=== PATIENT | male | born 1955 | race Caucasian/White ===

== ENCOUNTER 2019-07-04 06:43 | Emergency (ER) | payer MEDICARE, MEDICAID ==
[2019-07-04] MEDS ORDERED: Acetaminophen 500 MG TAB ONE (07:06)
[2019-07-04] MEDS ORDERED: Fentanyl 100 MCG/2 ML VIAL ONE (07:06)
[2019-07-04 07:29] LABS: ALT (SGPT) 30 U/L (8-55); AST (SGOT) 103 U/L (5-34); Albumin 3.7 g/dL (3.4-4.8); Alkaline Phosphatase 140 U/L (40-150); Anion Gap 17 mmol/L (10-20); BUN (Urea Nitrogen) 14 mg/dL (8.4-25.7); Bilirubin, Total 1.2 mg/dL (0.2-1.2); Calc. Creatinine Clearance 0 mL/min (70-130); Calcium 9.1 mg/dL (7.8-10.44); Carbon Dioxide 23 mmol/L (23-31); Chloride 106 mmol/L (98-107); Estimated GFR-MDRD 65; Globulin 3.4 g/dL (2.4-3.5); Glucose 107 mg/dL (80-115); Lipase 215 U/L (8-78); Potassium 4.5 mmol/L (3.5-5.1); Protein, Total 7.1 g/dL (5.8-8.1); Sodium 141 mmol/L (136-145)
[2019-07-04 07:40] LABS: Hemoglobin 11.3 g/dL (14.0-18.0); Mean Corpuscular Hemoglobin 24.8 pg (27.0-31.0); Mean Corpuscular Volume 80.1 fL (78.0-98.0); Mean Platelet Volume 6.9 fL (7.4-10.4); Platelet Count 123 thou/uL (130-400); RBC Distribution Width 18.7 % (11.5-14.5); Red Blood Cell (RBC) Count 4.56 mill/uL (4.70-6.10); White Blood Cell (WBC) Count 12.4 thou/uL (4.8-10.8)
[2019-07-04 07:45] LABS: Anisocytosis SLIGHT = 6-15 cells (100X) (0-5/hpf); Band 3 % (5-11); Lymphocytes 10 % (21-51); MDiff Complete? YES; Monocytes 9 % (0-10); Neutrophil 78 % (42-75); Platelet Morphology Comment Appears Adequate
[2019-07-04 07:48] LABS: CKMB 1.2 ng/mL (0-6.6)
[2019-07-04] MEDS ORDERED: Aspirin Chewable 81 MG TAB ONE (07:57)
[2019-07-04 08:18] LABS: INR-International Normal Ratio 1.3; PTT 32.7 SEC (22.9-36.1); Prothrombin Time 16.4 SEC (12.0-14.7)
--- NOTE | 2019-07-04 08:25 | CT ---
CT abdomen and pelvis with IV contrast HISTORY: Left lower quadrant pain. Liver cancer. COMPARISON: None available. FINDINGS: Mild atelectasis at the lung bases. Large amount of fluid throughout the partially visualiz ed lower esophagus. Prominent calcification within the coronary arteries and other arterial structures. Dystrophic calcification along the posterior liver dome with an adjacent fluid collection measuring u p to 8.4 cm x 3.6 cm greatest diameters on the axial images. Favored to be postoperative changes. A large heterogeneous mass within the lateral segment left liver lobe measures up to 11.3 cm x 10.3 c m greatest diameters on the axial images. Dilatation of the pancreatic duct up to 0.7 cm. At the level of the pancreatic body/neck, an oval cys tic lesion measures up to 2.5 cm. Hemostasis clips near the pancreatic head. Mild dystrophic calcification along the posterior margin of the pancreas. Gallbladder surgically absent. Heterogeneous fat density masses associated with each adrenal gland, larger on the left up to 3.8 cm length. Appearance of myelolipomas. Prominent degenerative changes lumbar spine. Fatty infiltration of the left psoas muscle. Cause is no t evident. No evidence of bowel obstruction. Scattered diverticula arise from the colon without adjacent inflamm ation. Large amount of abdominal fat and colon extend into a left inguinal hernia. The inferior portion of the left scrotum and hernia not included on the images. Dystrophic calcification at the la teral soft tissues of each hip. IMPRESSION: Left lower quadrant pain may be related to a very large left inguinal hernia containing n onobstructed colon. Diverticulosis. No evidence of diverticulitis. Very large heterogeneous mass within the left liver lobe. Correlates with historical report of liver cancer. There are also postoperative changes of the right liver lobe with adjacent fluid collection. No evidence of complication. Cystic mass at the pancreatic neck/body with dilatation of the more distal pancreatic duct. This coul d represent a neoplastic process. Prior exams not available for evaluation of stability. Also findings of chronic pancreatitis. Large amount of gastroesophageal reflux. Fatty masses of each adrenal gland. Likely myelolipomas. Prominent atherosclerosis.
[2019-07-04 08:34] LABS: Bilirubin Negative (Negative); Blood, Urine Trace (Negative); Clarity Clear (Clear); Glucose, Urine (Dipstick) Negative (Negative); Leukocyte Negative (Negative); Nitrite Negative (Negative); Protein, Urine (Dipstick) Negative (Neg-Trace)
[2019-07-04 08:36] LABS: Bacteria/HPF Rare-Few HPF (None Seen); RBC/HPF 0-3 HPF (0-3); Squamous Epithelial 0-3 HPF (0-3); WBC/HPF 0-3 HPF (0-3)
--- NOTE | 2019-07-04 08:55 | RAD ---
Chest one view HISTORY: Fever. COMPARISON: 11/14/2016. FINDINGS: Cardiac silhouette and mediastinum are magnified by projection. Pulmonary vasculature is un remarkable. Mediastinum is midline. No lobar consolidation or evidence of pneumothorax. Old right posterolateral rib fractures. IMPRESSION: Chronic-type findings are stable. No active cardiopulmonary abnormalities are demonstrate d.
[2019-07-04] MEDS ORDERED: Sodium Chloride 0.9% 1,000 ML ONE (09:00)
[2019-07-04] MEDS ORDERED: Piperacillin/Tazobactam 4.5 GM VIAL ONE (09:00)
[2019-07-04] MEDS ORDERED: Sodium Chloride 0.9% 100 ML ONE (09:01)
[2019-07-04] MEDS ORDERED: Iopamidol 370 76% 100 ML VIAL ONE (09:06)
[2019-07-04] MEDS ORDERED: Sodium Chloride 0.9% 250 ML 250 ML ONE (09:31)
== END 2019-07-04 09:49 | disposition short-term general hospital (02) ==
LOC: MADERS 06:43
DX: A41.9 Sepsis, unspecified organism (principal); K85.90 Acute pancreatitis without necrosis or infection, unspecified; R16.0 Hepatomegaly, not elsewhere classified; R79.89 Other specified abnormal findings of blood chemistry; I25.10 Atherosclerotic heart disease of native coronary artery without angina pectoris; I10 Essential (primary) hypertension; E78.5 Hyperlipidemia, unspecified; E78.00 Pure hypercholesterolemia, unspecified; M10.9 Gout, unspecified; Z85.05 Personal history of malignant neoplasm of liver; Z86.73 Personal history of transient ischemic attack (TIA), and cerebral infarction without residual deficits; Z85.46 Personal history of malignant neoplasm of prostate; Z87.891 Personal history of nicotine dependence; Z79.899 Other long term (current) drug therapy
CPT/HCPCS: 71045; 74177; 80053; 81003; 81015; 82553; 83605; 83690; 84484; 85025; 85610; 85730; 87040; 93005; 94760; 96365; 96375; J2543; J3010; J3370; J3490; J7050; Q9967